=== PATIENT | female | born 1960 | race Caucasian/White ===

== ENCOUNTER 2023-09-03 12:25 | Outpatient (CLI) | payer MEDICARE, OTHER ==
[~2023-09-03 12:25] MED LIST: Magnevist 469MG/ML 20 ML VIAL ONE
== END 2023-09-03 12:26 | disposition home or self-care (01) ==
LOC: CSHMRI 12:25
PROVIDERS: ATTEND Psychiatry & Neurology Neurology
DX: G35 Multiple sclerosis (principal); M47.812 Spondylosis without myelopathy or radiculopathy, cervical region; M48.54XA Collapsed vertebra, not elsewhere classified, thoracic region, initial encounter for fracture
CPT/HCPCS: 70553; 72156; 72157; A9579